=== PATIENT | female | born 1980 | race Two or more races ===

== ENCOUNTER 2021-02-25 05:30 | Inpatient (IN) | payer OTHER ==
[2021-02-25] MEDS ORDERED: CITRIC ACID/SODIUM CITRATE 30 ML UNIT-DOSE CUP PO ONE (05:50)
[2021-02-25 06:07] VITALS: BMI 34.0
[2021-02-25] MEDS: ELECTROLYTE-148 SOLN 500 ML IV SCH ×2 (06:10→10:29)
[2021-02-25] MEDS ORDERED: morphine SULFATE (PF) 1 MG/2 ML SYRINGE ONE (07:46)
[2021-02-25] MEDS ORDERED: KETOROLAC TROMETHAMINE 30 MG/1 ML VIAL ONE (07:47)
[2021-02-25] MEDS ORDERED: ceFAZolin SODIUM 1 GM VIAL ONE (07:47)
[2021-02-25] MEDS ORDERED: PHENYLEPHRINE HCL 10 MG/1 ML SINGLE DOSE VIAL ONE (07:47)
[2021-02-25] MEDS ORDERED: ONDANSETRON 4 MG/2 ML VIAL ONE (07:47)
[2021-02-25] MEDS ORDERED: OXYTOCIN 10 UNIT/ML 10ML MDV ONE (07:47)
[2021-02-25] MEDS ORDERED: morphine SULFATE/PF 1 MG/2 ML (2cc Syringe - QUVA) SPIN ONE (08:25)
[2021-02-25] MEDS ORDERED: ePHEDrine SULFATE 50 MG/1 ML AMPULE ONE (08:28)
[2021-02-25] MEDS ORDERED: ONDANSETRON 4 MG/2 ML VIAL IVPUSH PRN ×2 (09:42)
[2021-02-25] MEDS ORDERED: ELECTROLYTE-148 SOLN 500 ML IV ONE (09:48)
[2021-02-25] MEDS ORDERED: IBUPROFEN 800 MG/8 ML IJ IVPB PRN (09:49)
[2021-02-25] MEDS ORDERED: METHYLERGONOVINE MALEATE 0.2 MG/1 ML AMP IM PRN (09:49)
[2021-02-25] MEDS ORDERED: LABETALOL HCL 100 MG TABLET (FP) PO SCH (10:00)
[2021-02-25] MEDS ORDERED: ACETAMINOPHEN 1000 MG/100 ML VIAL IVPB ONE (10:08)
[2021-02-25] MEDS ORDERED: OXYTOCIN 20 UNITS in 0.9% NS 20 UNIT/1,000 ML INFUS.BAG IV ONE (10:09)
[2021-02-25] MEDS ORDERED: ACETAMINOPHEN INJECTION 100 ML IVPB ONE (10:09)
[2021-02-25] MEDS ORDERED: ELECTROLYTE-148 SOLN 1,000 ML IV SCH (10:18)
[2021-02-25] MEDS: OXYTOCIN 20 UNITS in 0.9% NS 20 UNIT/1,000 ML INFUS.BAG IV SCH (10:33)
[2021-02-25] MEDS: PRENATAL VITAMINS W/ FOLIC ACID TABLET (FP) PO SCH (10:52)
[2021-02-25] MEDS: LACTATED RINGERS SOLUTION 1,000 ML IV SCH (10:54)
[2021-02-25] MEDS ORDERED: NIFEdipine E.R. 30 MG TABLET PO ONE ×2 (12:15→17:45)
[2021-02-25] MEDS ORDERED: MAGNESIUM SULFATE 20GM/500ML - 20 GM/500 ML INFUS.BAG IVPB SCH (20:15)
[2021-02-25] MEDS ORDERED: MAGNESIUM 4GM/H20 - 4 GM/100 ML IVPB IVPB ONE (20:15)
[2021-02-25] MEDS ORDERED: MAGNESIUM SULFATE 20GM/500ML - 20 GM/500 ML INFUS.BAG ONE (20:30)
[2021-02-25] MEDS: LABETALOL HCL 200 MG TABLET (FP) PO SCH (22:15)
[2021-02-25] MEDS ORDERED: LABETALOL HCL 200 MG TABLET (FP) ONE (22:28)
[2021-02-26] MEDS ORDERED: ACETAMINOPHEN 325 MG TABLET (FP) ONE ×4 (00:33→16:59)
[2021-02-26] MEDS: ELECTROLYTE-148 SOLN 500 ML IV SCH ×2 (06:04→09:41)
[2021-02-26] MEDS: ELECTROLYTE-148 SOLN 1,000 ML IV SCH ×2 (07:00→11:27)
[2021-02-26] MEDS ORDERED: oxyCODONE HCL 5 MG TABLET ONE ×2 (07:48→12:21)
[2021-02-26] MEDS: oxyCODONE HCL 5 MG TABLET PO PRN ×2 (07:58→12:24)
[2021-02-26] MEDS: SIMETHICONE 80 MG TAB.CHEW (FP) PO PRN ×3 (07:59→17:05)
[2021-02-26] MEDS: ACETAMINOPHEN 325 MG TABLET (FP) PO PRN ×3 (07:59→17:05)
[2021-02-26 08:06] LABS: BASO % 0.4 % (0-2.0); HEMATOCRIT 30.6 % (32.4-45.2); HEMOGLOBIN 10.2 GM/dL (10.7-15.3); LYMPH % 13.5 % (8-40); MCH 28.6 pg (25.7-33.7); MCHC 33.4 g/dl (32.0-36.0); MEAN CELL VOLUME 85.4 fl (80-96); MEAN PLT VOLUME 9.1 fl (7.5-11.1); MONO % 5.8 % (3.8-10.2); NEUT % 79.3 % (42.8-82.8); PLATELET COUNT 121 10^3/uL (134-434); RBC 3.58 M/mm3 (3.60-5.2); RDW 14.1 % (11.6-15.6); WHITE BLOOD COUNT 7.4 K/mm3 (4.0-10.0)
[2021-02-26] MEDS ORDERED: MAGNESIUM SULFATE 20GM/500ML - 20 GM/500 ML INFUS.BAG IVPB SCH (08:20)
[2021-02-26] MEDS ORDERED: BISACODYL 10 MG SUPP.RECT RC PRN (09:49)
[2021-02-26] MEDS ORDERED: PRENATAL VITAMINS W/ FOLIC ACID TABLET (FP) PO ONE (09:58)
[2021-02-26] MEDS ORDERED: LABETALOL HCL 200 MG TABLET (FP) ONE (09:58)
[2021-02-26] MEDS ORDERED: NIFEdipine E.R. 30 MG TABLET PO SCH ×2 (10:00→20:45)
[2021-02-26] MEDS: PRENATAL VITAMINS W/ FOLIC ACID TABLET (FP) PO SCH (10:33)
[2021-02-26] MEDS: LABETALOL HCL 200 MG TABLET (FP) PO SCH (10:33)
[2021-02-26] MEDS: OXYTOCIN 20 UNITS in 0.9% NS 20 UNIT/1,000 ML INFUS.BAG IV SCH (11:27)
[2021-02-26] MEDS: LACTATED RINGERS SOLUTION 1,000 ML IV SCH (11:27)
[2021-02-26] MEDS ORDERED: MAGNESIUM SULFATE 20GM/500ML - 20 GM/500 ML INFUS.BAG ONE (11:29)
[2021-02-26 15:59] LABS: MAGNESIUM 4.5 mg/dL (1.8-2.4)
[2021-02-26 16:22] LABS: ALBUMIN 2.2 g/dl (3.4-5.0); BLOOD UREA NITROGEN 3.3 mg/dL (7-18); CALCIUM 7.5 mg/dL (8.5-10.1)
[2021-02-26 16:24] LABS: CREATININE 0.5 mg/dL (0.55-1.3); URIC ACID 3.2 mg/dL (2.6-7.2)
[2021-02-26 16:27] LABS: BILIRUBIN,TOTAL 0.2 mg/dL (0.2-1); TOT PROT 5.7 g/dl (6.4-8.2)
[2021-02-26] MEDS ORDERED: IBUPROFEN 600 MG TABLET (FP) PO ONE (16:59)
[2021-02-26] MEDS: IBUPROFEN 600 MG TABLET (FP) PO PRN (17:05)
[2021-02-26] MEDS ORDERED: NIFEdipine E.R. 30 MG TABLET ONE (20:35)
[2021-02-26] MEDS ORDERED: LISINOPRIL 20 MG TABLET PO SCH (22:00)
[2021-02-27] MEDS: IBUPROFEN 600 MG TABLET (FP) PO PRN ×2 (01:08→09:37)
[2021-02-27] MEDS: SIMETHICONE 80 MG TAB.CHEW (FP) PO PRN ×3 (01:09→21:44)
[2021-02-27] MEDS: ACETAMINOPHEN 325 MG TABLET (FP) PO PRN ×2 (03:29→18:05)
[2021-02-27] MEDS: PRENATAL VITAMINS W/ FOLIC ACID TABLET (FP) PO SCH (09:36)
[2021-02-27] MEDS ORDERED: LABETALOL HCL 100 MG TABLET (FP) PO SCH (10:00)
[2021-02-27] MEDS ORDERED: LABETALOL HCL 5 MG/1 ML (100MG/20 ML VIAL) IVPUSH ONE (19:38)
[2021-02-27] MEDS ORDERED: LABETALOL HCL 200 MG TABLET (FP) ONE (19:55)
[2021-02-27] MEDS ORDERED: LABETALOL HCL 5 MG/1 ML (100MG/20 ML VIAL) ONE (19:55)
[2021-02-27] MEDS: NIFEdipine E.R. 30 MG TABLET PO SCH (20:00)
[2021-02-27] MEDS: LABETALOL HCL 200 MG TABLET (FP) PO SCH ×2 (20:15→21:43)
[2021-02-27] MEDS: SENNOSIDES/DOCUSATE COMBO (SENNA PLUS) TABLET (UD) PO PRN ×2 (21:45→22:00)
[2021-02-28] MEDS: oxyCODONE HCL 5 MG TABLET PO PRN ×2 (01:05→10:14)
[2021-02-28] MEDS: ACETAMINOPHEN 325 MG TABLET (FP) PO PRN ×2 (01:05→10:13)
[2021-02-28] MEDS: SIMETHICONE 80 MG TAB.CHEW (FP) PO PRN ×2 (01:30→10:15)
[2021-02-28 08:54] VITALS: TEMP 98
[2021-02-28] MEDS: LABETALOL HCL 200 MG TABLET (FP) PO SCH (09:07)
[2021-02-28] MEDS: PRENATAL VITAMINS W/ FOLIC ACID TABLET (FP) PO SCH (09:07)
[2021-02-28] MEDS: NIFEdipine E.R. 30 MG TABLET PO SCH (09:07)
[2021-02-28 15:05] VITALS: BP 146/88; PULSE 98
== END 2021-02-28 15:15 | disposition home or self-care (01) | DRG 540 ==
LOC: JLDR 05:30 → J3W 11:10 → JLDR 19:50 → J3W 02-26 21:53
PROVIDERS: ADMIT Obstetrics & Gynecology; ATTEND Obstetrics & Gynecology
PROC: 10D00Z1 Extraction of Products of Conception, Low, Open Approach (ICD-10-PCS; principal; 2021-02-25)
PROC: 0UL70ZZ Occlusion of Bilateral Fallopian Tubes, Open Approach (ICD-10-PCS; 2021-02-25)
DX: O32.1XX0 Maternal care for breech presentation, not applicable or unspecified (principal); O10.03 Pre-existing essential hypertension complicating the puerperium; O99.334 Smoking (tobacco) complicating childbirth; F17.210 Nicotine dependence, cigarettes, uncomplicated; Z3A.38 38 weeks gestation of pregnancy; Z37.0 Single live birth
CPT/HCPCS: 36415; 80048; 80053; 83735; 84550; 84702; 85025; 85610; 85730; 86780; 86850; 86900; 86901; C9803; J0131; U0003; U0005